=== PATIENT | male | born 1960 | race Caucasian/White ===

== ENCOUNTER 2016-10-15 10:51 | Emergency (ER) | payer MEDICARE, MEDICAID ==
[2016-10-15] MEDS ORDERED: Sodium Chloride 0.9% 2.5 ML Syringe FLUSH PRN (11:23)
[2016-10-15] MEDS ORDERED: Sodium Chloride 0.9% 10 ML Syringe FLUSH PRN (11:23)
--- NOTE | 2016-10-15 11:35 | EDM.PDOC ---
ED HPI GENERAL MEDICAL PROBLEM - General Chief Complaint: General Stated Complaint: SOB/COUGHIMG UP BLOOD Time Seen by Provider: 10/15/16 11:02 Source of Information: Reports: Patient History Limitations: Reports: No Limitations - History of Present Illness INITIAL COMMENTS - FREE TEXT/NARRATIVE: History of present illness: [] Patient has a history of lymphoma and had a partial lobectomy in February 2016. Last night he coughed up blood clots and continued to cough blood up this morning. It is now spit with blood tinged fluid. Patient had an episode this morning where he felt completely drained and wiped out. Since now with left -sided chest shoulder, elbow pain fatigue. Review of systems: As per history of present illness and below otherwise all systems reviewed and negative. Past medical history: As per history of present illness and as reviewed below otherwise noncontributory. Surgical history: As per history of present illness and as reviewed below otherwise noncontributory. Social history: No reported history of drug or alcohol abuse. Family history: As per history of present illness and as reviewed below otherwise noncontributory. Physical exam: General: Well developed, well nourished in NAD HEENT: Atraumatic, normocephalic, pupils reactive, negative for conjunctival pallor or scleral icterus, mucous membranes moist, throat clear, neck supple, nontender, trachea midline. Lungs: Clear to auscultation, breath sounds equal bilaterally, chest nontender. Heart: S1S2, regular, negative for clicks, rubs, or JVD. Abdomen: Soft, nondistended, nontender. Negative for masses or hepatosplenomegaly. Negative for costovertebral tenderness. Pelvis: Stable nontender. Genitourinary: Deferred. Rectal: Deferred. Extremities: Atraumatic, negative for cords or calf pain. Neurovascular unremarkable. Neuro: Awake, alert, oriented. Cranial nerves II through XII unremarkable. Cerebellum unremarkable. Motor and sensory unremarkable throughout. Exam nonfocal. Diagnostics: [] Chest imaging rules out pneumothorax, pneumonia and shows no sign of cancer or metastatic disease. Labs show a dropping white count while on chemotherapy. Therapeutics: [] Patient was hydrated given IV antibiotics for bronchitis due to his symptoms and immunocompromised status. Impression: [] Bronchitis Plan: [] Levaquin for 7 days follow up with PMD and/or oncologist Definitive disposition and diagnosis as appropriate pending reevaluation and review of above. chest Pain Score (Numeric/FACES): 6 - Related Data Allergies Allergy/AdvReac Type Severity Reaction Status Date / Time codeine Allergy Hives Verified 10/15/16 10:58 Home Meds: Home Meds Cetirizine [ZyrTEC] 0 mg PO DAILY 10/15/16 [History] Levofloxacin [Levaquin] 750 mg PO DAILY #7 tablet 10/15/16 [Rx] Omeprazole Magnesium [Prilosec Otc] 20 mg PO DAILY 10/15/16 [History] buPROPion HCl [Wellbutrin Xl] 300 mg PO DAILY 10/15/16 [History] Past Medical History - Past Health History Medical/Surgical History: Denies Medical/Surgical History Oncologic (Cancer) History: Reports: Lymphoma - Past Surgical History Oncologic Surgical History: Reports: Lumpectomy, Other (See Below) Other Oncologic Surgeries/Procedures: middle lobe right lung sx Social & Family History - Family History Family Medical History: Noncontributory - Tobacco Use Smoking Status *Q: Current Every Day Smoker Years of Tobacco use: 40 Packs/Tins Daily: 1 Used Tobacco, but Quit: Yes Month Tobacco Last Used: 2-3 days ago Second Hand Smoke Exposure: No - Caffeine Use Caffeine Use: Reports: Coffee Caffeine Use Comment: 2 cups daily - Alcohol Use Days Per Week of Alcohol Use: 0 - Recreational Drug Use Recreational Drug Use: No Drug Use in Last 12 Months: Yes Recreational Drug Type: Reports: Methamphetamine Recreational Drug Use Frequency: Daily ED ROS GENERAL - Review of Systems Review Of Systems: See Below (See history of present illness) ED EXAM, GENERAL - Physical Exam Exam: See Below (See history of present illness) Course - Vital Signs Last Recorded V/S: Last Vital Signs Temp 36.4 C 10/15/16 14:16 Pulse 59 L 10/15/16 14:16 Resp 19 10/15/16 14:16 BP 127/89 10/15/16 14:16 Pulse Ox 98 10/15/16 14:16 - Orders/Labs/Meds Orders: Active Orders 24 hr Category Date Time Status EKG 12 Lead [EKG Documentation Completion] [RC] URGENT Care 10/15/16 10:56 Active Chest w Cont [CT] Stat Exams 10/15/16 13:09 Taken CULTURE BLOOD [BC] Stat Lab 10/15/16 13:30 Received CULTURE BLOOD [BC] Stat Lab 10/15/16 13:43 Received Blood Culture x2 Reflex Set [OM.PC] Stat Oth 10/15/16 13:09 Ordered Peripheral IV Insertion Adult [OM.PC] Stat Ot 10/15/16 11:23 Ordered Labs: Laboratory Tests 10/15/16 10/15/16 10/15/16 Range/Units 11:42 11:42 11:42 WBC 2.44 L (4.0-11.0) K/uL RBC 4.93 (4.50-5.90) M/uL Hgb 14.7 (13.0-17.0) g/dL Hct 44.5 (38.0-50.0) % MCV 90.3 (80.0-98.0) fL MCH 29.8 (27.0-32.0) pg MCHC 33.0 (31.0-37.0) g/dL RDW Std Deviation 43.8 (28.0-62.0) fl RDW Coeff of Goldie 13 (11.0-15.0) % Plt Count 151 (150-400) K/uL MPV 10.80 (7.40-12.00) fL Add Manual Diff YES Neutrophils % (Manual) 48 (48.0-80.0) % Band Neutrophils % 4 % Lymphocytes % (Manual) 14 L (16.0-40.0) % Atypical Lymphs % 0 Monocytes % (Manual) 22 H (0.0-15.0) % Eosinophils % (Manual) 10 H (0.0-7.0) % Basophils % (Manual) 2 H (0.0-1.5) % Nucleated RBC % 0.0 /100WBC Absolute Seg Neuts 1.2 Band Neutrophils # 0.1 Lymphocytes # (Manual) 0.3 Monocytes # (Manual) 0.5 Eosinophils # (Manual) 0.2 Basophils # (Manual) 0 Nucleated RBCs # 0 K/uL INR 0.98 (0.86-1.11) APTT 29.9 (18.6-31.3) SEC Sodium 141 (136-146) mmol/L Potassium 4.5 (3.5-5.1) mmol/L Chloride 108 (98-110) mmol/L Carbon Dioxide 25 (21-31) mmol/L BUN 18 (6.0-23.0) mg/dL Creatinine 0.9 (0.6-1.5) mg/dL Est Cr Clr Drug Dosing 98.77 mL/min Estimated GFR (MDRD) > 60.0 ml/min Glucose 86 (60-110) mg/dL Calcium 9.5 (8.8-10.8) mg/dL Total Bilirubin 0.8 (0.1-1.5) mg/dL AST 22 (5-40) IU/L ALT 19 (8-54) IU/L Alkaline Phosphatase 57 (40-150) Troponin I (0.0-0.29) NG/ML Total Protein 6.7 (6.0-8.0) g/dL Albumin 4.3 (3.5-5.0) g/dL Globulin 2.4 (2.0-3.5) g/dL Albumin/Globulin Ratio 1.8 (1.3-2.8) 10/15/16 10/15/16 Range/Units 11:42 15:37 WBC (4.0-11.0) K/uL RBC (4.50-5.90) M/uL Hgb (13.0-17.0) g/dL Hct (38.0-50.0) % MCV (80.0-98.0) fL MCH (27.0-32.0) pg MCHC (31.0-37.0) g/dL RDW Std Deviation (28.0-62.0) fl RDW Coeff of Goldie (11.0-15.0) % Plt Count (150-400) K/uL MPV (7.40-12.00) fL Add Manual Diff Neutrophils % (Manual) (48.0-80.0) % Band Neutrophils % % Lymphocytes % (Manual) (16.0-40.0) % Atypical Lymphs % Monocytes % (Manual) (0.0-15.0) % Eosinophils % (Manual) (0.0-7.0) % Basophils % (Manual) (0.0-1.5) % Nucleated RBC % /100WBC Absolute Seg Neuts Band Neutrophils # Lymphocytes # (Manual) Monocytes # (Manual) Eosinophils # (Manual) Basophils # (Manual) Nucleated RBCs # K/uL INR (0.86-1.11) APTT (18.6-31.3) SEC Sodium (136-146) mmol/L Potassium (3.5-5.1) mmol/L Chloride (98-110) mmol/L Carbon Dioxide (21-31) mmol/L BUN (6.0-23.0) mg/dL Creatinine (0.6-1.5) mg/dL Est Cr Clr Drug Dosing mL/min Estimated GFR (MDRD) ml/min Glucose (60-110) mg/dL Calcium (8.8-10.8) mg/dL Total Bilirubin (0.1-1.5) mg/dL AST (5-40) IU/L ALT (8-54) IU/L Alkaline Phosphatase (40-150) Troponin I < 0.10 < 0.10 (0.0-0.29) NG/ML Total Protein (6.0-8.0) g/dL Albumin (3.5-5.0) g/dL Globulin (2.0-3.5) g/dL Albumin/Globulin Ratio (1.3-2.8) Meds: Medications Discontinued Medications Generic Name Dose Route Start Last Admin Trade Name Freq PRN Reason Stop Dose Admin Sodium Chloride 1,000 mls @ 999 mls/hr 10/15/16 13:26 10/15/16 13:32 Normal Saline IV 10/15/16 14:26 999 mls/hr .Bolus ONE Administration Levofloxacin/Dextrose 500 mg/ 100 mls @ 100 mls/hr 10/15/16 14:54 10/15/16 15 :09 Premix IV 10/15/16 15:53 100 mls/hr ONETIME ONE Administration Iopamidol 75 ml 10/15/16 13:23 10/15/16 13:24 Isovue Multipack-370 (76%) IVPUSH 10/15/16 13:24 75 ml ONETIME STA Administration Morphine Sulfate 4 mg 10/15/16 12:46 10/15/16 13:05 Morphine IVPUSH 10/15/16 12:47 4 mg ONETIME ONE Administration Sodium Chloride 10 ml 10/15/16 11:23 10/15/16 11:52 Saline Flush FLUSH 10 ml ASDIRECTED PRN Administration Keep Vein Open Sodium Chloride 2.5 ml 10/15/16 11:23 10/15/16 11:52 Saline Flush FLUSH 2.5 ml ASDIRECTED PRN Administration Keep Vein Open Departure - Departure Time of Disposition: 06:57 Disposition: Home, Self-Care 01 Condition: good Clinical Impression: Bronchitis - Discharge Information Prescriptions: Levofloxacin [Levaquin] 750 mg PO DAILY #7 tablet Instructions: Acute Bronchitis, [id number] Referrals: Alejandro Arevalo MD [Primary Care Provider] - Forms: ED Department Discharge Additional Instructions: The following information is given to patients seen in the emergency department who are being discharged to home. This information is to outline your options for follow-up care. We provide all patients seen in our emergency department with a follow-up referral. The need for follow-up, as well as the timing and circumstances, are variable depending upon the specifics of your emergency department visit. If you don't have a primary care physician on staff, we will provide you with a referral. We always advise you to contact your personal physician following an emergency department visit to inform them of the circumstance of the visit and for follow-up with them and/or the need for any referrals to a consulting specialist. The emergency department will also refer you to a specialist when appropriate. This referral assures that you have the opportunity for follow-up care with a specialist. All of these measure are taken in an effort to provide you with optimal care, which includes your follow-up. Under all circumstances we always encourage you to contact your private physician who remains a resource for coordinating your care. When calling for follow-up care, please make the office aware that this follow-up is from your recent emergency room visit. If for any reason you are refused follow-up, please contact the [facility] Emergency Department at and asked to speak to the emergency department charge nurse. Take antibiotics as directed with your primary care physician return if any symptoms worsen or change [facility] [address] [place] [phone] - My Orders Last 24 Hours: My Active Orders 10/15/16 10:56 EKG 12 Lead [EKG Documentation Completion] [RC] URGENT 10/15/16 11:23 Peripheral IV Insertion Adult [OM.PC] Stat 10/15/16 13:09 Chest w Cont [CT] Stat Blood Culture x2 Reflex Set [OM.PC] Stat 10/15/16 13:30 CULTURE BLOOD [BC] Stat 10/15/16 13:43 CULTURE BLOOD [BC] Stat - Assessment/Plan Last 24 Hours: My Active Orders 10/15/16 10:56 EKG 12 Lead [EKG Documentation Completion] [RC] URGENT 10/15/16 11:23 Peripheral IV Insertion Adult [OM.PC] Stat 10/15/16 13:09 Chest w Cont [CT] Stat Blood Culture x2 Reflex Set [OM.PC] Stat 10/15/16 13:30 CULTURE BLOOD [BC] Stat 10/15/16 13:43 CULTURE BLOOD [BC] Stat
[2016-10-15 12:25] LABS: CHLORIDE,CL 108 mmol/L (98-110); SODIUM,NA 141 mmol/L (136-146)
[2016-10-15] MEDS ORDERED: Morphine 4 MG/ML Syringe IVPUSH ONE (12:46)
[2016-10-15] MEDS ORDERED: Iopamidol 755 MG/ML 500 ML Multipack Bottle IVPUSH STA (13:23)
[2016-10-15] MEDS ORDERED: Sodium Chloride 0.9% 1,000 ML IV ONE (13:26)
[2016-10-15 14:17] VITALS: BP 127/89
[2016-10-15] MEDS ORDERED: Levofloxacin/Dextrose 5%-Water 500 MG in Premix Bag 1 BAG IV ONE (14:54)
--- NOTE | 2016-10-15 20:51 | CR ---
EXAM DATE: 10/15/16 PATIENT'S AGE: 56 Patient: MARY JO MARTINEZ Facility: [place], [place] Site . Site : 1960 Study: XRay Chest [id number]/12/2017 1:01:34 PM Ordering Physician: Peewee Alicia Final Report: INDICATION: Pain, shortness of breath. COMPARISON: none TECHNIQUE: Two view chest. FINDINGS: The lungs are clear. The heart, mediastinum and pulmonary vessels are of normal size. There is no evidence of pneumothorax or pleural effusion. The patient has had prior resection of the posterior right 6th rib. IMPRESSION: No acute cardiopulmonary disease process identified. Dictated by Baal Marcus MD @ Oct 15 2016 1:10PM (Electronic Signature) Report Signed by Proxy. ISIAH
--- NOTE | 2016-10-18 13:19 | CT ---
EXAM DATE: 10/15/16 PATIENT'S AGE: 56 Patient: MARY JO MARTINEZ Facility: [place], [place] Site . Site : 1960 Study: CT Chest [id number]/12/2017 2:18:39 PM Ordering Physician: Peewee Alicia Final Report: Indication: 56-year-old with lymphoma on chemotherapy presents with hemoptysis. Technique: A CT volumetric acquisition was performed of the thorax during IV contrast infusion. Comparison: Chest CT dated 09/20/2013. Findings: As compared to the prior exam dated 09/20/2013 the atelectatic right middle lobe has been resected. There is underlying emphysema within both lungs with a combination of centrilobular emphysema as well as peripheral paraseptal emphysema. There are several bullae and blebs noted in a subpleural position within the upper lung zones. There is no evidence of spontaneous pneumothorax or pneumomediastinum. Pulmonary vasculature appears of normal size with no evidence of interstitial edema. There is minimal central bronchial wall thickening within both lungs consistent with chronic bronchitis changes but I do not see evidence of bronchiectasis. There is no evidence of a suspicious mass or malignant appearing lymphadenopathy within the central mediastinum or either axilla. There is uniform vascular enhancement within the pulmonary arteries with no evidence of pulmonary thromboemboli. Heart size appears normal and there is no evidence of pericardial fluid or pleural fluid. The spleen appears normal in size. Impression: 1. Bronchial wall thickening consistent with chronic bronchitis changes. No evidence of a suspicious soft tissue tumor mass or malignant appearing lymphadenopathy. 2. Interval resection of the right middle lobe. Dictated by Bala Marcus MD @ Oct 15 2016 2:46PM (Electronic Signature) Report Signed by Proxy. [facility]ERRosangela
== END 2016-10-15 16:40 | disposition home or self-care (01) ==
LOC: MW.ED 10:51
DX: J40 Bronchitis, not specified as acute or chronic (principal); F17.200 Nicotine dependence, unspecified, uncomplicated; Z85.72 Personal history of non-Hodgkin lymphomas; Z88.8 Allergy status to other drugs, medicaments and biological substances; Z79.899 Other long term (current) drug therapy
CPT/HCPCS: 36415; 71010; 71260; 80053; 84484; 85025; 85610; 85730; 87040; 93005; 96361; 96365; 96375; 99285; J1956; J2270; J7040; Q9967; 99284

== ENCOUNTER 2017-11-29 18:27 | Emergency (ER) | payer MEDICARE, MEDICAID ==
[2017-11-29] MEDS ORDERED: Albuterol/Ipratropium 3.0-0.5 MG/3 ML Neb Soln NEB ONE ×2 (18:29→18:54)
[2017-11-29] MEDS ORDERED: methylPREDNISolone Sodium Succinate 125 MG/2 ML SDV IVPUSH ONE (18:36)
[2017-11-29] MEDS ORDERED: methylPREDNISolone Sodium Succinate 125 MG/2 ML SDV IM ONE (18:48)
[2017-11-29] MEDS ORDERED: Benzonatate 100 MG Cap PO ONE (18:54)
--- NOTE | 2017-11-29 19:57 | EDM.PDOC ---
ED HPI GENERAL MEDICAL PROBLEM - General Chief Complaint: Respiratory Problem Stated Complaint: SHORTNESS OF BREATH Time Seen by Provider: 11/29/17 18:36 Source of Information: Reports: Patient History Limitations: Reports: No Limitations - History of Present Illness INITIAL COMMENTS - FREE TEXT/NARRATIVE: HISTORY AND PHYSICAL: History of present illness: Patient is a 57-year-old male with a complaint of shortness of breath and cough over the past 24 hours. Patient has a history of COPD and asthma. He does have breathing treatments and inhalers available to him. He denies any fever, chills , chest pain, abdominal pain, nausea, vomiting, diarrhea or constipation. Current every day smoker. Review of systems: As per history of present illness and below otherwise all systems reviewed and negative. Past medical history: As per history of present illness and as reviewed below otherwise noncontributory. Surgical history: As per history of present illness and as reviewed below otherwise noncontributory. Social history: No reported history of drug or alcohol abuse. Family history: As per history of present illness and as reviewed below otherwise noncontributory. Physical exam: General: Alert and well-nourished 57 showed male. Alert and oriented. Nontoxic appearing and in no acute distress. HEENT: Atraumatic, normocephalic, pupils equal and reactive bilaterally, negative for conjunctival pallor or scleral icterus, mucous membranes moist, throat clear, neck supple, nontender, trachea midline. No drooling or trismus noted. No meningeal signs Lungs: Diminished with poor air exchange to bilateral posterior bases, breath sounds equal bilaterally, chest nontender. Dry nonproductive cough noted. Heart: S1S2, regular rate and rhythm without overt murmur Abdomen: Soft, nondistended, nontender. Negative for masses or hepatosplenomegaly. Negative for costovertebral tenderness. Pelvis: Stable nontender. Genitourinary: Deferred. Rectal: Deferred. Skin: Intact, warm, dry. No lesions or rashes noted. Extremities: Atraumatic, negative for cords or calf pain. Neurovascular unremarkable. Neuro: Awake, alert, oriented. Cranial nerves II through XII unremarkable. Cerebellum unremarkable. Motor and sensory unremarkable throughout. Exam nonfocal. Notes: Coughing spells are noted, nonproductive. He does have an allergy to codeine, will give Tessalon Perles. Chest x-ray shows no evidence of infiltrate or pneumonia. Due to his symptoms, history of smoking and past medical history a will treat him with a Z-Jovani, Medrol Dosepak and Tessalon Perles. Follow up with his primary care provider in the next 1-2 days. Return to the ED as needed and as discussed. Diagnostics: Chest x-ray Therapeutics: DuoNeb 2, Solu-Medrol IM, Tessalon Perle Impression: Bronchitis Plan: 1. Please stop smoking 2. Take the medications as directed. 3. Follow-up with your primary care provider in the next 1-2 days. Return to the ED as needed and as discussed. Definitive disposition and diagnosis as appropriate pending reevaluation and review of above. lungs Pain Score (Numeric/FACES): 6 - Related Data Allergies Allergy/AdvReac Type Severity Reaction Status Date / Time amoxicillin Allergy Hives Verified 11/29/17 18:39 codeine Allergy Hives Verified 11/29/17 18:39 Home Meds: Home Meds Albuterol Sulfate 1 dose INH ASDIRECTED PRN 11/29/17 [History] Past Medical History - Past Health History Medical/Surgical History: Denies Medical/Surgical History HEENT History: Reports: None Cardiovascular History: Reports: None Respiratory History: Reports: Asthma, Bronchitis, Recurrent, COPD, Pneumonia, Recurrent Gastrointestinal History: Reports: None Genitourinary History: Reports: None Musculoskeletal History: Reports: None Neurological History: Reports: None Psychiatric History: Reports: None Endocrine/Metabolic History: Reports: None Hematologic History: Reports: None Immunologic History: Reports: None Oncologic (Cancer) History: Reports: Lymphoma Dermatologic History: Reports: None - Infectious Disease History Infectious Disease History: Reports: MRSA - Past Surgical History Head Surgeries/Procedures: Reports: None HEENT Surgical History: Reports: None Cardiovascular Surgical History: Reports: None Respiratory Surgical History: Reports: None GI Surgical History: Reports: None Male Surgical History: Reports: Other (See Below) Other Male Surgeries/Procedures: TURP Endocrine Surgical History: Reports: None Neurological Surgical History: Reports: None Musculoskeletal Surgical History: Reports: None Oncologic Surgical History: Reports: Lumpectomy, Other (See Below) Other Oncologic Surgeries/Procedures: middle lobe right lung sx Dermatological Surgical History: Reports: None Social & Family History - Family History Family Medical History: Noncontributory - Tobacco Use Smoking Status *Q: Current Every Day Smoker Years of Tobacco use: 46 Packs/Tins Daily: 1 - Caffeine Use Caffeine Use: Reports: None Caffeine Use Comment: 2 cups daily - Recreational Drug Use Recreational Drug Use: No ED ROS GENERAL - Review of Systems Review Of Systems: ROS reveals no pertinent complaints other than HPI. ED EXAM, GENERAL - Physical Exam Exam: See Below (See dictation) Course - Vital Signs Last Recorded V/S: Last Vital Signs Temp 98.2 F 11/29/17 18:39 Pulse 94 11/29/17 18:39 Resp 20 11/29/17 18:39 BP 114/77 11/29/17 18:39 Pulse Ox 96 11/29/17 18:39 - Orders/Labs/Meds Orders: Active Orders 24 hr Category Date Time Status RT Aerosol Therapy [RC] ASDIRECTED Care 11/29/17 18:29 Active RT Aerosol Therapy [RC] ASDIRECTED Care 11/29/17 18:55 Active Chest 2V [CR] Stat Exams 11/29/17 18:36 Taken Ketorolac [Toradol] Med 11/29/17 20:12 Once 60 mg IM ONETIME ONE Medication Orders Ketorolac Tromethamine (Toradol) 60 mg IM ONETIME ONE Stop: 11/29/17 20:13 Meds: Medications Generic Name Dose Route Start Last Admin Trade Name Freq PRN Reason Stop Dose Admin Ketorolac Tromethamine 60 mg 11/29/17 20:12 Toradol IM 11/29/17 20:13 ONETIME ONE Discontinued Medications Generic Name Dose Route Start Last Admin Trade Name Freq PRN Reason Stop Dose Admin Albuterol/Ipratropium 3 ml 11/29/17 18:29 11/29/17 18:45 Duoneb 3.0-0.5 Mg/3 Ml NEB 11/29/17 18:30 3 ml ONETIME ONE Administration Albuterol/Ipratropium 3 ml 11/29/17 18:54 11/29/17 19:05 Duoneb 3.0-0.5 Mg/3 Ml NEB 11/29/17 18:55 3 ml ONETIME ONE Administration Benzonatate 200 mg 11/29/17 18:54 11/29/17 19:10 Tessalon Perles PO 11/29/17 18:55 200 mg ONETIME ONE Administration Methylprednisolone Sodium Succinate 125 mg 11/29/17 18:36 11/29/17 19:11 Solu-Medrol IVPUSH 11/29/17 18:37 Not Given ONETIME ONE Methylprednisolone Sodium Succinate 125 mg 11/29/17 18:48 11/29/17 19:07 Solu-Medrol IM 11/29/17 18:49 125 mg ONETIME ONE Administration Departure - Departure Time of Disposition: 20:14 Disposition: Home, Self-Care 01 Clinical Impression: Bronchitis - Discharge Information Instructions: Acute Bronchitis, Adult, [id number] Referrals: PCP,None [Primary Care Provider] - Forms: ED Department Discharge Additional Instructions: The following information is given to patients seen in the emergency department who are being discharged to home. This information is to outline your options for follow-up care. We provide all patients seen in our emergency department with a follow-up referral. The need for follow-up, as well as the timing and circumstances, are variable depending upon the specifics of your emergency department visit. If you don't have a primary care physician on staff, we will provide you with a referral. We always advise you to contact your personal physician following an emergency department visit to inform them of the circumstance of the visit and for follow-up with them and/or the need for any referrals to a consulting specialist. The emergency department will also refer you to a specialist when appropriate. This referral assures that you have the opportunity for follow-up care with a specialist. All of these measure are taken in an effort to provide you with optimal care, which includes your follow-up. Under all circumstances we always encourage you to contact your private physician who remains a resource for coordinating your care. When calling for follow-up care, please make the office aware that this follow-up is from your recent emergency room visit. If for any reason you are refused follow-up, please contact the [facility] Emergency Department at and asked to speak to the emergency department charge nurse. [facility] [address] [place] [id number] 1. Please stop smoking 2. Take the medications as directed. 3. Follow-up with your primary care provider in the next 1-2 days. Return to the ED as needed and as discussed. - My Orders Last 24 Hours: My Active Orders 11/29/17 18:36 Chest 2V [CR] Stat 11/29/17 18:55 RT Aerosol Therapy [RC] ASDIRECTED 11/29/17 20:12 Ketorolac [Toradol] 60 mg IM ONETIME ONE - Assessment/Plan Last 24 Hours: My Active Orders 11/29/17 18:36 Chest 2V [CR] Stat 11/29/17 18:55 RT Aerosol Therapy [RC] ASDIRECTED 11/29/17 20:12 Ketorolac [Toradol] 60 mg IM ONETIME ONE
[2017-11-29] MEDS ORDERED: Ketorolac 60 MG/2 ML SDV IM ONE (20:12)
[2017-11-29 20:14] VITALS: BP 108/64
--- NOTE | 2017-11-30 10:05 | CR ---
EXAM DATE: 11/29/17 PATIENT'S AGE: 57 Patient: MARY JO MARTINEZ Facility: [place], [place] Site . Site : 1960 Study: XRay Chest [id number]/26/[id number] 7:45:26 PM Ordering Physician: Doctor Wagner Final Report: INDICATION: SOB, hx of asthma/emphysema/COPD TECHNIQUE: Chest 2 views. COMPARISON: 10/15/2016 FINDINGS: Cardiovascular and mediastinum: Heart size and vasculature are normal in caliber and appearance. Mediastinum is within normal limits. Lungs and pleural spaces: Lungs are hyperexpanded but clear. No sign of infiltrate or mass. No sign of pleural effusion. No pneumothorax. Bones and soft tissues: No acute findings. S/p resection of portion of posterior right 6th rib. IMPRESSION: No sign of acute disease. Dictated by Lucero Lai MD @ Nov 29 2017 8:08PM (Electronic Signature) Report Signed by Proxy. ISIAH
== END 2017-11-29 20:27 | disposition home or self-care (01) ==
LOC: MW.ED 18:27
DX: J40 Bronchitis, not specified as acute or chronic (principal); J44.9 Chronic obstructive pulmonary disease, unspecified; F17.210 Nicotine dependence, cigarettes, uncomplicated; Z88.0 Allergy status to penicillin; Z88.5 Allergy status to narcotic agent; Z79.899 Other long term (current) drug therapy; Z87.01 Personal history of pneumonia (recurrent)
CPT/HCPCS: 71046; 94640; 96372; 99284; A9270; J2930; 99283

== ENCOUNTER 2022-10-25 01:21 | Emergency (ER) | payer MEDICARE, BC ==
[2022-10-25] MEDS ORDERED: Sodium Chloride 0.9% 10 ML Syringe FLUSH PRN (01:30)
[2022-10-25] MEDS ORDERED: Sodium Chloride 0.9% 2.5 ML Syringe FLUSH PRN (01:30)
[2022-10-25 01:47] LABS: BASOPHILS PERCENT AUTO 0.4 % (0.0-1.5); EOSINOPHILS ABSOLUTE AUTO 0.5 K/uL (0.0-0.7); EOSINOPHILS PERCENT AUTO 6.5 % (0.0-7.0); HEMOGLOBIN 15.4 g/dL (13.0-17.0); LYMPHOCYTES ABSOLUTE AUTO 1.5 K/uL (0.6-2.4); LYMPHOCYTES PERCENT AUTO 20.2 % (16.0-40.0); MEAN CORPUSCULAR HEMOGLOBIN 30.9 pg (27.0-32.0); MEAN CORPUSCULAR HGB CONC 33.5 g/dL (31.0-37.0); MEAN CORPUSCULAR VOLUME 92.2 fL (80.0-98.0); MONOCYTES ABSOLUTE AUTO 0.6 K/uL (0.0-0.8); MONOCYTES PERCENT AUTO 8.7 % (0.0-15.0); NEUTROPHILS ABSOLUTE AUTO 4.7 K/uL (1.4-5.7); NEUTROPHILS PERCENT AUTO 64.2 % (48.0-80.0); NRBC ABSOLUTE 0 K/uL; PLATELET COUNT,PLT 182 K/uL (150-400); RED BLOOD CELL COUNT 4.99 M/uL (4.50-5.90); WHITE BLOOD CELL COUNT,WBC 7.37 K/uL (4.0-11.0)
[2022-10-25 02:05] LABS: CALCIUM 9.2 mg/dL (8.5-10.1); CARBON DIOXIDE,CO2 27.2 mmol/L (21.0-32.0); EST CRCL DRUG DOSING (CG) 82.62 mL/min; POTASSIUM,K 4.1 mmol/L (3.5-5.1)
[2022-10-25] MEDS ORDERED: HYDROmorphone 1 MG/ML Syringe ONE (02:31)
[2022-10-25] MEDS ORDERED: Midazolam 1 MG/ML 2 ML SDV ONE (03:02)
[2022-10-25] MEDS ORDERED: HYDROmorphone 2 MG/ML Syringe ONE (03:32)
[2022-10-25] MEDS ORDERED: HYDROmorphone 2 MG/ML Syringe IVPUSH STA (03:37)
[2022-10-25] MEDS ORDERED: Midazolam 1 MG/ML 2 ML SDV IVPUSH STA (03:38)
[2022-10-25] MEDS: HYDROmorphone 2 MG/ML Syringe IVPUSH STA ×2 (03:40→04:08)
[2022-10-25] MEDS ORDERED: cefTRIAXone 1 GM in Sodium Chloride 0.9% 50 ML IV ONE (03:57)
[2022-10-25] MEDS ORDERED: HYDROmorphone 1 MG/ML Syringe IVPUSH STA (04:08)
[2022-10-25 04:57] LABS: APPEARANCE,URINE CLOUDY; BILIRUBIN,URINE NEGATIVE (NEGATIVE); COLOR,URINE RED; GLUCOSE,URINE NEGATIVE (NEGATIVE); KETONES,URINE NEGATIVE (NEGATIVE); LEUKOCYTE ESTERASE,URINE TRACE (NEGATIVE); NITRITE,URINE NEGATIVE (NEGATIVE); OCCULT BLOOD,URINE LARGE (NEGATIVE); PROTEIN,URINE >=300 mg/dL (NEGATIVE)
[2022-10-25 05:01] LABS: BACTERIA,URINE RARE (NEGATIVE); EPITHELIAL CELLS,URINE RARE (NONE-FEW); RBC,URINE TOO NUMEROUS TO CT (0-2/HPF); WBC,URINE 0-2 (0-5/HPF)
[2022-10-25 10:05] VITALS: BP 110/72; PULSE 63
== END 2022-10-25 10:32 | disposition home or self-care (01) ==
LOC: MW.ED 01:21
DX: N13.9 Obstructive and reflux uropathy, unspecified (principal); N32.89 Other specified disorders of bladder; J44.9 Chronic obstructive pulmonary disease, unspecified; Z88.0 Allergy status to penicillin; Z88.5 Allergy status to narcotic agent; Z88.1 Allergy status to other antibiotic agents
CPT/HCPCS: 36415; 51702; 74176; 80048; 81001; 85025; 87086; 96365; 96375; 96376; 99284; J0696; J1170; J2250; J3490

== ENCOUNTER 2024-11-04 16:13 | Inpatient (IN) | payer SELFPAY ==
[2024-11-04] MEDS: Sodium Chloride 0.9% 1,000 ML IV ONE (17:34)
[2024-11-04] MEDS: LORazepam 2 MG/ML SDV IVPUSH STA (17:35)
[2024-11-04] MEDS: fentaNYL 50 MCG/ML SDV IVPUSH ONE (17:35)
[2024-11-04] MEDS: fentaNYL 100 MCG/2 ML SDV IVPUSH ONE ×2 (17:35→20:33)
[2024-11-04] MEDS: cefTRIAXone 1 GM in Water For Injection, Sterile 10 ML IVPUSH ONE (17:47)
[2024-11-04] MEDS: Lidocaine 1% 10 ML MDV INJECT ONE (18:23)
[2024-11-04] MEDS: fentaNYL 50 MCG/ML SDV ONE (18:24)
[2024-11-04] MEDS ORDERED: Polyethylene Glycol 3350 Powder 17 GM Packet PO PRN (18:27)
[2024-11-04] MEDS ORDERED: Melatonin 3 MG Tab PO PRN (18:27)
[2024-11-04] MEDS ORDERED: Morphine 2 MG/ML SYRINGE IVPUSH PRN (18:27)
[2024-11-04] MEDS ORDERED: Acetaminophen 650 MG Supp RECTAL PRN (18:27)
[2024-11-04] MEDS ORDERED: Ondansetron 4 MG/2 ML SDV IVPUSH PRN (18:27)
[2024-11-04] MEDS: Acetaminophen 325 MG Tab PO SCH (18:30)
[2024-11-04] MEDS ORDERED: Naloxone 0.4 MG/ML SDV IVPUSH PRN (18:32)
[2024-11-04] MEDS ORDERED: HYDROmorphone 0.5 MG/0.5 ML Syringe IVPUSH PRN (18:32)
[2024-11-04] MEDS: HYDROmorphone 0.5 MG/0.5 ML Syringe IVPUSH PRN (20:03)
[2024-11-05] MEDS: Albuterol/Ipratropium 3.0-0.5 MG/3 ML Neb Soln NEB PRN (04:36)
[2024-11-05 05:52] LABS: BASOPHILS ABSOLUTE AUTO 0.01 K/uL (0.00-0.20); BASOPHILS PERCENT AUTO 0.1 % (0.0-1.0); HEMATOCRIT 46.6 % (42.0-52.0); HEMOGLOBIN 15.7 g/dL (14.0-18.0); IMMATURE GRAN ABSOLUTE AUTO 0.04 K/uL (0.00-0.05); IMMATURE GRAN PERCENT AUTO 0.3 % (0.0-0.4); LYMPHOCYTES ABSOLUTE AUTO 0.58 K/uL (1.00-4.80); LYMPHOCYTES PERCENT AUTO 4.6 % (24.0-44.0); MEAN CORPUSCULAR HGB CONC 33.7 g/dL (32.0-36.0); MEAN CORPUSCULAR VOLUME 92.1 fL (83.0-99.0); MEAN PLATELET VOLUME 10.3 fL (9.4-12.4); MONOCYTES ABSOLUTE AUTO 0.81 K/uL (0.00-0.80); MONOCYTES PERCENT AUTO 6.4 % (0.0-8.0); NEUTROPHILS ABSOLUTE AUTO 11.18 K/uL (1.80-7.70); NEUTROPHILS PERCENT AUTO 88.6 % (41.0-71.0); PLATELET COUNT,PLT 170 K/uL (150-400); RED BLOOD CELL COUNT 5.06 M/uL (4.52-5.90); WHITE BLOOD CELL COUNT,WBC 12.62 K/uL (3.9-11.3)
[2024-11-05 06:09] LABS: CALCIUM 8.9 mg/dL (8.5-10.1); CARBON DIOXIDE,CO2 30.2 mmol/L (21.0-32.0); CREATININE 1.1 mg/dL (0.8-1.3); EST CRCL DRUG DOSING (CG) 73.21 mL/min; POTASSIUM,K 4.7 mmol/L (3.5-5.1)
[2024-11-05] MEDS: Tamsulosin 0.4 MG Cap.ER PO ONE (09:14)
[2024-11-05] MEDS: oxyCODONE 5 MG Tab PO SCH (09:14)
[2024-11-05] MEDS: methylPREDNISolone Sodium Succinate 40 MG/1 ML SDV IVPUSH SCH (09:15)
[2024-11-05] MEDS: cefTRIAXone 1 GM in Water For Injection, Sterile 10 ML IVPUSH SCH (09:15)
[2024-11-06 09:58] LABS: BASOPHILS ABSOLUTE AUTO 0.01 K/uL (0.00-0.20); BASOPHILS PERCENT AUTO 0.1 % (0.0-1.0); HEMATOCRIT 43.7 % (42.0-52.0); HEMOGLOBIN 14.4 g/dL (14.0-18.0); IMMATURE GRAN ABSOLUTE AUTO 0.05 K/uL (0.00-0.05); IMMATURE GRAN PERCENT AUTO 0.4 % (0.0-0.4); LYMPHOCYTES ABSOLUTE AUTO 0.72 K/uL (1.00-4.80); MEAN CORPUSCULAR HEMOGLOBIN 31.2 pg (28.0-32.0); MEAN CORPUSCULAR VOLUME 94.6 fL (83.0-99.0); MEAN PLATELET VOLUME 10.8 fL (9.4-12.4); MONOCYTES ABSOLUTE AUTO 0.68 K/uL (0.00-0.80); MONOCYTES PERCENT AUTO 5.7 % (0.0-8.0); NEUTROPHILS ABSOLUTE AUTO 10.49 K/uL (1.80-7.70); NEUTROPHILS PERCENT AUTO 87.8 % (41.0-71.0); PLATELET COUNT,PLT 153 K/uL (150-400); RED BLOOD CELL COUNT 4.62 M/uL (4.52-5.90); WHITE BLOOD CELL COUNT,WBC 11.95 K/uL (3.9-11.3)
[2024-11-06 10:19] LABS: CALCIUM 8.6 mg/dL (8.5-10.1); CARBON DIOXIDE,CO2 33.9 mmol/L (21.0-32.0); CREATININE 0.9 mg/dL (0.8-1.3); EST CRCL DRUG DOSING (CG) 89.48 mL/min; POTASSIUM,K 4.4 mmol/L (3.5-5.1)
[2024-11-06] MEDS: HYDROmorphone 1 MG/ML Syringe IVPUSH PRN (12:08)
[2024-11-07 05:50] LABS: BASOPHILS ABSOLUTE AUTO 0.01 K/uL (0.00-0.20); BASOPHILS PERCENT AUTO 0.1 % (0.0-1.0); EOSINOPHILS ABSOLUTE AUTO 0.01 K/uL (0.00-0.45); EOSINOPHILS PERCENT AUTO 0.1 % (0.0-6.0); HEMATOCRIT 44.7 % (42.0-52.0); IMMATURE GRAN ABSOLUTE AUTO 0.03 K/uL (0.00-0.05); IMMATURE GRAN PERCENT AUTO 0.3 % (0.0-0.4); LYMPHOCYTES ABSOLUTE AUTO 0.76 K/uL (1.00-4.80); MEAN CORPUSCULAR HEMOGLOBIN 31.1 pg (28.0-32.0); MEAN CORPUSCULAR HGB CONC 33.6 g/dL (32.0-36.0); MEAN CORPUSCULAR VOLUME 92.5 fL (83.0-99.0); MEAN PLATELET VOLUME 11.2 fL (9.4-12.4); MONOCYTES ABSOLUTE AUTO 0.61 K/uL (0.00-0.80); MONOCYTES PERCENT AUTO 5.6 % (0.0-8.0); NEUTROPHILS ABSOLUTE AUTO 9.39 K/uL (1.80-7.70); NEUTROPHILS PERCENT AUTO 86.9 % (41.0-71.0); PLATELET COUNT,PLT 164 K/uL (150-400); RED BLOOD CELL COUNT 4.83 M/uL (4.52-5.90); WHITE BLOOD CELL COUNT,WBC 10.81 K/uL (3.9-11.3)
[2024-11-07 06:14] LABS: CALCIUM 9.2 mg/dL (8.5-10.1); CARBON DIOXIDE,CO2 30.4 mmol/L (21.0-32.0); EST CRCL DRUG DOSING (CG) 80.53 mL/min; POTASSIUM,K 4.1 mmol/L (3.5-5.1)
[2024-11-07 12:15] VITALS: BP 160/90; PULSE 60
== END 2024-11-07 14:41 | disposition home or self-care (01) | DRG 200 ==
LOC: MW.ED 16:13 → MW.MS 17:50
PROVIDERS: ADMIT Family Medicine; ATTEND Family Medicine
PROC: 0W9B30Z Drainage of Left Pleural Cavity with Drainage Device, Percutaneous Approach (ICD-10-PCS; principal; 2024-11-04)
DX: J93.11 Primary spontaneous pneumothorax (principal); J44.1 Chronic obstructive pulmonary disease with (acute) exacerbation; I10 Essential (primary) hypertension; F17.200 Nicotine dependence, unspecified, uncomplicated; J43.9 Emphysema, unspecified; Z88.0 Allergy status to penicillin; Z88.1 Allergy status to other antibiotic agents; Z88.5 Allergy status to narcotic agent; Z90.2 Acquired absence of lung [part of]
CPT/HCPCS: 36415; 71045; 71045-26; 71046; 71046-26; 80048; 85025; 96361; 96374; 96375; 99222; 99231; 99238; 99285; 99285-25; A9270-GY; C1729; J0696; J1171; J2060; J2919; J3010; J7030